=== PATIENT | female | born 1990 | race Caucasian/White ===

== ENCOUNTER → 2016-08-15 | Outpatient (CLI) | payer MEDICAID ==
[~2016-08-15] MED LIST: ALPRAZOLAM0.5 M3 PO; CIPRO HC 0.2%-110 ML OT; CYCLOBENZAPRINE10 M1 PO; GABAPENTIN100 M1 PO; HYDROCODONE BIT1 T39 PO; HYDROCODONE-APA1 TA2 PO; NOMEDS XX; NORCO1 TAB PO; PERCOCET 325 MG1 TA4 PO; PREDNISONE 20MG20 MG PO; SPRINTEC 35 MCG1 TAB PO; ZITHROMAX Z PA250 MG PO; ZOFRAN4 MG PO
[2016-08-15 15:40] LABS: BILIRUBIN, INDIRECT 0.19 mg/dL (0-0.9)
[2016-08-17 09:38] LABS: HBsAg Screen Negative (Negative); HIV Screen 4th Generation wRfx Non Reactive (Non Reactive); Hep A Ab, IgM Negative (Negative); Hep B Core Ab, IgM Negative (Negative); Hep C Virus Ab >11.0 (0.0-0.9)
== END ==
LOC: LAB 14:08
PROVIDERS: Emergency Medicine
DX: R53.83 Other fatigue (principal)
CPT/HCPCS: G0432